=== PATIENT | male | born 1990 | race American Indian/Alaskan Native ===

== ENCOUNTER 2020-04-10 00:20 | Emergency (ER) | payer OTHER ==
--- NOTE | 2020-04-10 02:34 | XRay Report ---
CERVICAL SPINE 3 VIEWS INDICATION / CLINICAL INFORMATION: neck pain. COMPARISON: None available. FINDINGS: BONES/JOINT(S): No acute fracture or subluxation. No significant degenerative changes. SOFT TISSUES: No significant abnormality. ADDITIONAL FINDINGS: None. Signer Name: Bin Kerr MD Signed: 04/10/2020 2:30 AM Workstation Name: [id number]
--- NOTE | 2020-04-10 02:35 | XRay Report ---
LUMBAR SPINE AP AND LATERAL VIEWS INDICATION / CLINICAL INFORMATION: lower back pain. COMPARISON: None available. FINDINGS: BONES/JOINT(S): No acute fracture or subluxation. No significant degenerative changes. SOFT TISSUES: No significant abnormality. ADDITIONAL FINDINGS: None. Signer Name: Bin Kerr MD Signed: 04/10/2020 2:30 AM Workstation Name: [id number]
[2020-04-10] MEDS ORDERED: HYDROcodone/ACETAMINOPHEN 7.5-325MG TAB PO ONE (02:44)
[2020-04-10] MEDS ORDERED: IBUPROFEN 800 MG TAB PO ONE (02:44)
[2020-04-10] MEDS ORDERED: ONDANSETRON 4 MG ODT TAB PO ONE (02:44)
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
[2020-04-10 06:16] VITALS: BP 132/88
== END 2020-04-10 04:49 | disposition home or self-care (01) ==
LOC: ED 00:20
DX: S29.012A Strain of muscle and tendon of back wall of thorax, initial encounter (principal); S16.1XXA Strain of muscle, fascia and tendon at neck level, initial encounter; M62.830 Muscle spasm of back; F12.10 Cannabis abuse, uncomplicated; Z79.899 Other long term (current) drug therapy; V49.49XA Driver injured in collision with other motor vehicles in traffic accident, initial encounter; Y93.89 Activity, other specified; Y92.488 Other paved roadways as the place of occurrence of the external cause; Y99.8 Other external cause status
CPT/HCPCS: 72040; 72100; 99283; Q0162